=== PATIENT | male | born 1975 | race Two or more races ===

== ENCOUNTER 2025-08-25 13:44 | Emergency (ER) | payer OTHER ==
[~2025-08-25] VITALS: Ht 177.8 cm; Wt 105.7 kg
[2025-08-25] MEDS ORDERED: ATOR20TA PO (14:10)
[2025-08-25] MEDS ORDERED: SEMA1PEN SQ (14:10)
[2025-08-25] MEDS ORDERED: METO25TA6 PO (14:10)
[2025-08-25] MEDS ORDERED: AMLO10TA4 PO (14:10)
[2025-08-25] MEDS ORDERED: LISI1TAB29 PO (14:10)
[2025-08-25] MEDS ORDERED: EMPA25TA PO (14:10)
[2025-08-25] MEDS ORDERED: METF-440 PO (14:10)
[2025-08-25] MEDS ORDERED: GLIP10TA3 PO (14:10)
[2025-08-25 14:11] LABS: PLATELET COUNT (AUTO) 291 K/uL (152-348); RED BLOOD CELL COUNT(AUTO) 5.49 MIL/uL (4.06-5.63); RED CELL DISTRIBUTION WIDTH 13.4 % (12.1-16.2); WHITE BLOOD COUNT (AUTO) 8.9 K/uL (3.6-10.2)
[2025-08-25 14:24] LABS: ASPARTATE AMINOTRANSFERASE 25.0 U/L (15-37); CREATININE 1.0 mg/dL (0.6-1.3); SODIUM SERUM 140.0 mmol/L (136-145); TOTAL PROTEIN, SERUM 7.7 g/dL (6.4-8.2); UREA NITROGEN, BLOOD 12.0 mg/dL (7-18)
[2025-08-25] MEDS ORDERED: METOPROLOL TARTRATE 50 MG TABLET ONE (14:28)
[2025-08-25] MEDS ORDERED: CLONIDINE HCL 0.1 MG TABLET ONE (14:28)
[2025-08-25] MEDS: METOPROLOL TARTRATE 50 MG TABLET PO ONE (14:31)
[2025-08-25] MEDS: CLONIDINE HCL 0.1 MG TABLET PO ONE (14:31)
[2025-08-25] MEDS ORDERED: AMLODIPINE 5 MG TABLET ONE (15:08)
[2025-08-25] MEDS: AMLODIPINE 5 MG TABLET PO ONE (15:11)
[2025-08-25] MEDS ORDERED: POTASSIUM CHLORIDE 20 MEQ TAB.PRT.SR ONE (15:36)
[2025-08-25] MEDS ORDERED: ALPRAZOLAM 0.5 MG TABLET ONE (15:36)
[2025-08-25] MEDS: ALPRAZOLAM 0.25 MG TABLET PO ONE (15:39)
[2025-08-25] MEDS: POTASSIUM CHLORIDE 20 MEQ TAB.PRT.SR PO ONE (15:39)
[2025-08-25] MEDS ORDERED: LISINOPRIL 10 MG TABLET ONE (16:07)
[2025-08-25] MEDS: LISINOPRIL 10 MG TABLET PO ONE ×2 (16:17→16:19)
[2025-08-25] MEDS: HYDROCHLOROTHIAZIDE 25 MG TABLET PO ONE (16:24)
[2025-08-25 16:30] VITALS: BP 184/122
[2025-08-25] MEDS ORDERED: METO-358 PO (16:38)
[2025-08-25 16:56] VITALS: BP 184/122; TEMP 98.8; O2SAT 96
== END 2025-08-25 17:10 | disposition home or self-care (01) ==
LOC: ER 14:11
DX: I11.9 Hypertensive heart disease without heart failure (principal); E11.9 Type 2 diabetes mellitus without complications; E78.5 Hyperlipidemia, unspecified; F17.290 Nicotine dependence, other tobacco product, uncomplicated; I48.91 Unspecified atrial fibrillation; Z59.00 Homelessness unspecified; Z79.84 Long term (current) use of oral hypoglycemic drugs; Z79.899 Other long term (current) drug therapy; R06.02 Shortness of breath
CPT/HCPCS: 36415; 84484; 85025; A4606; A4663